=== PATIENT | female | born 1990 | race American Indian/Alaskan Native ===

== ENCOUNTER 2017-06-03 11:25 | Emergency (ER) | payer MEDICAID ==
[2017-06-03 11:40] VITALS: BMI 30.2
[2017-06-03 11:50] VITALS: RESP 18
[2017-06-03 13:22] LABS: HEMATOCRIT 34.4 % (34.0-47.0); MEAN CELL VOLUME 81.7 fL (81.0-99.0); MEAN CORPUSCULAR HEMOGLOBIN 27.5 pg (27.0-31.0); MEAN CORPUSCULAR HGB CONC 33.6 g/dL (33.0-37.0); MEAN PLATELET VOLUME 10.2 fL (7.2-11.7); RED CELL DISTRIBUTION WIDTH 15.2 % (11.5-14.5); WHITE BLOOD COUNT 6.7 K/uL (4.8-10.8)
--- NOTE | 2017-06-03 13:28 | C.PDOC ---
History Of Present Illness 26 y/o female A2 and currently 10 weeks presents to ED with complaints of low abdominal "cramping" pain for 2 days with associated brown vaginal discharge. Patient was seen at ED previously and diagnosed with UTI, given antibiotics which she states she finished. Patient denies taking pain medication and denies dysuria, back pain, fever, chills, vomiting or any other complaints at this time. Time Seen by Provider: 06/03/17 12:43 Chief Complaint (Nursing): Female Genitourinary History Per: Patient History/Exam Limitations: no limitations Onset/Duration Of Symptoms: Days Current Symptoms Are (Timing): Still Present Past Medical History Reviewed: Historical Data, Nursing Documentation, Vital Signs Vital Signs: Last Vital Signs Temp 98.4 F 06/03/17 14:24 Pulse 65 06/03/17 14:24 Resp 18 06/03/17 14:24 BP 116/67 06/03/17 14:24 Pulse Ox 96 06/03/17 15:15 - Medical History PMH: No Chronic Diseases Surgical History: No Surg Hx Family History: States: No Known Family Hx - Social History Hx Alcohol Use: No Hx Substance Use: No - Immunization History Hx Tetanus Toxoid Vaccination: No Hx Influenza Vaccination: No Hx Pneumococcal Vaccination: No Review Of Systems Constitutional: Negative for: Fever, Chills Gastrointestinal: Positive for: Abdominal Pain. Negative for: Vomiting Genitourinary: Positive for: Vaginal Discharge. Negative for: Dysuria, Hematuria Musculoskeletal: Negative for: Back Pain Physical Exam - Physical Exam Appears: Non-toxic, No Acute Distress Skin: Warm, Dry, No Rash Head: Normacephalic Eye(s): bilateral: Normal Inspection Oral Mucosa: Moist Neck: Normal ROM, Supple Chest: Symmetrical Cardiovascular: Rhythm Regular Respiratory: Normal Breath Sounds, No Rales, No Rhonchi, No Wheezing Gastrointestinal/Abdominal: Soft, Tenderness (Right suprapubic ), No Guarding, No Rebound Back: No CVA Tenderness Extremity: Normal ROM, Capillary Refill (<2 seconds) Neurological/Psych: Oriented x3 ED Course And Treatment - Laboratory Results Result Diagrams: 06/03/17 13:08 06/03/17 13:08 O2 Sat by Pulse Oximetry: 96 (RA) Pulse Ox Interpretation: Normal - CT Scan/US 1st Trimester Other Rad Studies (CT/US): Interpreted By Me, Read By Radiologist, Radiology Report Reviewed CT/US Interpretation: PROCEDURE: OB Pelvic Ultrasound. HISTORY: preg, pelvic pain and bleeding. COMPARISON: 05/17/2017. FINDINGS: UTERUS: Single Live intrauterine gestation. CRL equivalent to 9 weeks 3 days gestatioin. Gestational sac diameter equivalent to 10 weeks 4 days gestation. age ( Ultrasound estimated): 10 weeks 0 days. Date of delivery (Ultrasound estimated ) : 12/30/2017. Heart rate: 158 bpm. Sharlene-gestational hemorrhage: None. Uterus measures 13.2 x 7.3 x 10.2 cm. No mass. CERVIX: Long and closed. No cervical abnormality seen. RIGHT OVARY: Measures 3.9 x 2.4 x 3.2 cm. No mass. Normal flow. LEFT OVARY: Measures 4.2 x 2.7 x 3.6 cm. No mass. Normal flow. Simple cyst, 3.0 x 1.7 x 3.3 cm. Follow-up ultrasound is advised during 2nd trimester of to reassess this left ovarian cyst. FREE FLUID: None. OTHER FINDINGS: None. IMPRESSION: Single live intrauterine gestation of approximately 10 weeks 0 days gestational age. No subchorionic hemorrhage. heart rate 158 beats per minute. Cervix long and closed. Incidental 3.3 cm left ovarian cyst for which followup ultrasound is advised during the 2nd trimester of . Medical Decision Making Medical Decision Making: Impression: patient with cramping pain and spotting Plan: Labs, US Prior records reviewed: Patient seen at ED on 05/17/17 for pelvic pain and vaginal bleeding. Ultrasound showed +IUP for 6 weeks and FHR 117bpm Progress: Labs reviewed and WNL. US shows IUP 10 weeks with FHR 158 bpm. No UTI. Patient stable for discharge. Disposition Counseled Patient/Family Regarding: Studies Performed, Diagnosis, Need For Followup - Disposition [facility]] [facility] [Outside] Disposition: HOME/ ROUTINE Disposition Time: 15:14 Condition: STABLE Additional Instructions: Please follow up with [employer] visiting teacher for further evaluation, refer to list for local providers You may call [employer] printer service for any assistance [phone]. Take Tylenol for any pain Instructions: Threatened Miscarriage (ED) Forms: [employer] (Setswana) - POA Present On Arrival: None - Clinical Impression Clinical Impression: Abdominal pain during - PA / SCIENTIFIC SPECIALIST / Resident Statement MD/DO has reviewed & agrees with the documentation as recorded. - Scribe Statement The provider has reviewed the documentation as recorded by the Jennyibajay Arriola All medical record entries made by the Tabatha were at my direction and personally dictated by me. I have reviewed the chart and agree that the record accurately reflects my personal performance of the history, physical exam, medical decision making, and the department course for this patient. I have also personally directed, reviewed, and agree with the discharge instructions and disposition.
[2017-06-03 13:34] LABS: RBC URINE 1 /hpf (0-3); URINE BILIRUBIN NEGATIVE (NEGATIVE); URINE BLOOD NEGATIVE (NEGATIVE); URINE COLOR Yellow (YELLOW); URINE GLUCOSE (UA) NORMAL (Normal); URINE KETONE NEGATIVE (NEGATIVE); URINE LEUKOCYTE ESTERASE NEG Leu/uL (Negative); URINE PROTEIN NEGATIVE (NEGATIVE); URINE UROBILINOGEN NORMAL mg/dL (0.2-1.0); WBC URINE 1 /hpf (0-5)
[2017-06-03 13:42] LABS: BLOOD UREA NITROGEN 8 mg/dL (7-17); CALCIUM 8.8 mg/dl (8.6-10.4); CARBON DIOXIDE 21 mmol/L (22-30); CHLORIDE 102 mmol/L (98-107); GFR AFRICAN-AMERICAN > 60; GLUCOSE,RANDOM 83 mg/dL (65-105); POTASSIUM 3.4 mmol/L (3.6-5.2); SODIUM 134 mmol/L (132-148)
[2017-06-03 14:25] VITALS: BP 116/67; PULSE 65; TEMP 98.4
--- NOTE | 2017-06-03 14:56 | US ---
PROCEDURE: OB Pelvic Ultrasound HISTORY: preg, pelvic pain and bleeding COMPARISON: 05/17/2017 FINDINGS: UTERUS: Single Live intrauterine gestation. CRL equivalent to 9 weeks 3 days gestatioin Gestational sac diameter equivalent to 10 weeks 4 days gestation age (Ultrasound estimated): 10 weeks 0 days Date of delivery (Ultrasound estimated) : 12/30/2017 Heart rate: 158 bpm. Sharlene-gestational hemorrhage: None. Uterus measures 13.2 x 7.3 x 10.2 cm. No mass CERVIX: Long and closed. No cervical abnormality seen. RIGHT OVARY: Measures 3.9 x 2.4 x 3.2 cm. No mass. Normal flow. LEFT OVARY: Measures 4.2 x 2.7 x 3.6 cm. No mass. Normal flow. Simple cyst, 3.0 x 1.7 x 3.3 cm. Follow-up ultrasound is advised during 2nd trimester of to reassess this left ovarian cyst. FREE FLUID: None. OTHER FINDINGS: None. IMPRESSION: Single live intrauterine gestation of approximately 10 weeks 0 days gestational age. No subchorionic hemorrhage. heart rate 158 beats per minute. Cervix long and closed. Incidental 3.3 cm left ovarian cyst for which followup ultrasound is advised during the 2nd trimester of .
[2017-06-03 15:01] VITALS: O2SAT 96
== END 2017-06-03 15:40 | disposition home or self-care (01) ==
LOC: C.ER 11:25
DX: O26.891 Other specified pregnancy related conditions, first trimester (principal); R10.30 Lower abdominal pain, unspecified; Z3A.10 10 weeks gestation of pregnancy

== ENCOUNTER 2017-10-06 13:52 | Emergency (ER) | payer MEDICAID ==
[2017-10-06 14:51] LABS: SQUAMOUS EPITHIAL < 1 /hpf (0-5); URINE BACTERIA RARE (<OCC); URINE BILIRUBIN NEGATIVE (NEGATIVE); URINE BLOOD NEGATIVE (NEGATIVE); URINE CLARITY Hazy (Clear); URINE COLOR Yellow (YELLOW); URINE GLUCOSE (UA) NORMAL (Normal); URINE LEUKOCYTE ESTERASE TRACE Leu/uL (Negative); URINE PROTEIN NEGATIVE (NEGATIVE); URINE UROBILINOGEN NORMAL mg/dL (0.2-1.0)
--- NOTE | 2017-10-06 14:51 | OBHP ---
Datetime: 10/06/2017 14:46 IP Adm Impression: , intrauterine Admit Comment, IP Provider: at 28.4weeks came with c/o ABDOMIBAL DISCOMFORT started from saturday , upper abdomen, no ctxs, vb, lof+fm obhx 1 x pmh de med pnv all nkda psh den soch den ve closed a/p maternal discomfort r/o epigasytric pain plan dc home ptl given po hyr tums f/u pmd in 1-2days Pelvic Type - PN: Adequate Extremities - PN: Normal Abdomen - PN: Normal Back - PN: Normal Breast - PN: Normal Lungs - PN: Normal Heart - PN: Normal Thyroid - PN: Normal Neurologic - PN: Normal HEENT - PN: Normal General - PN: Normal FHR - Baseline A Provider: 130 Contraction Comments Provider: none EGA AdmitDate IP: 28.4 Vital Signs Provider: Reviewed; Within Normal Limits IP Chief Complaint: Maternal discomfort NICHD Variability Prov Fetus A: Moderate 6-25bpm NICHD Accel Fetus A IP Provider: 10X10 FHR Category Provider Fetus A: Category I Dilatation, Provider: 0 Effacement, Provider: 0 Station, Provider: -3 Genitourinary Exam: Normal DTRs - PN: Normal
--- NOTE | 2017-10-06 14:53 | OBDCSUM ---
Datetime: 10/06/2017 14:50 Discharge Comment, Provider: dc home ptl given po hyr indras f/u pmd in 1-2days Discharge Diagnosis Prov Other: 28+weeks nst
[2017-10-06 23:14] VITALS: BP 139/69; PULSE 80; RESP 18; TEMP 98; O2SAT 99
== END 2017-10-06 15:00 | disposition home or self-care (01) ==
LOC: C.EROB 13:52
DX: O26.893 Other specified pregnancy related conditions, third trimester (principal); Z3A.28 28 weeks gestation of pregnancy

== ENCOUNTER 2017-12-08 20:52 | Emergency (ER) | payer MEDICAID ==
[2017-12-08 20:19] VITALS: BMI 30.2
[2017-12-08 21:53] LABS: HEMOGLOBIN 12.5 g/dL (11.0-16.0); MEAN CELL VOLUME 83.1 fL (81.0-99.0); MEAN CORPUSCULAR HGB CONC 34.9 g/dL (33.0-37.0); MEAN PLATELET VOLUME 10.3 fL (7.2-11.7); RBC 4.3 Mil/uL (3.80-5.20); RED CELL DISTRIBUTION WIDTH 13.8 % (11.5-14.5); WHITE BLOOD COUNT 6.5 K/uL (4.8-10.8)
[2017-12-08 21:56] LABS: SQUAMOUS EPITHIAL < 1 /hpf (0-5); URINE BACTERIA RARE (<OCC); URINE BILIRUBIN NEGATIVE (NEGATIVE); URINE BLOOD NEGATIVE (NEGATIVE); URINE CLARITY Clear (Clear); URINE COLOR Yellow (YELLOW); URINE GLUCOSE (UA) NORMAL (Normal); URINE LEUKOCYTE ESTERASE NEG Leu/uL (Negative); URINE PROTEIN NEGATIVE (NEGATIVE); URINE UROBILINOGEN NORMAL mg/dL (0.2-1.0)
[2017-12-08 22:04] LABS: ALB/GLOB RATIO 1.1 (1.0-2.1); ALBUMIN 3.5 g/dL (3.5-5.0); ALT/SGPT 44 U/L (9-52); AST/SGOT 33 U/L (14-36); BLOOD UREA NITROGEN 5 mg/dL (7-17); CALCIUM 9.6 mg/dl (8.6-10.4); GFR AFRICAN-AMERICAN > 60; GFR NON-AFRICAN AMERICAN > 60
--- NOTE | 2017-12-08 22:15 | OBHP ---
Datetime: 12/08/2017 21:45 IP Adm Impression: Term, intrauterine IP Admit Plan: Observation/Evaluation Admit Comment, IP Provider: PT is here today with complaints of feeling tired and dizzy since 10am. Pt denies dizziness, or lightheadedness. Denies vaginal bleeding or leaking of fluid. POBHx: #8lbs. short cervix. PGYNHx: normal pap, no hx of STD Social Hx: negative x 3. Meds: none All: NKDA SVE: closed/long/hi A/P 27 [id number]@ 37 6/7 presents today with complaints of feeling tired. 1) Vitals stable 2) Labs: WNL 3) Discharge home. 4) Follow up w care. Pelvic Type - PN: Adequate Extremities - PN: Normal Abdomen - PN: Normal Back - PN: Normal Breast - PN: Normal Lungs - PN: Normal Heart - PN: Normal Thyroid - PN: Normal Neurologic - PN: Normal HEENT - PN: Normal General - PN: Normal FHR - Baseline A Provider: 150 Comments, ACOG Physical Exam: SVE: closed/long/hi Gestation - Est Wks by US: 37 6/7 EGA AdmitDate IP: 37.4 IP Chief Complaint: Maternal discomfort NICHD Variability Prov Fetus A: Moderate 6-25bpm NICHD Accel Fetus A IP Provider: 15X15 NICHD Decel Fetus A IP Provider: None Genitourinary Exam: Normal DTRs - PN: Normal
[2017-12-09 03:22] VITALS: BP 120/69; PULSE 71; RESP 20; TEMP 97; O2SAT 98
== END 2017-12-08 22:40 | disposition home or self-care (01) ==
LOC: C.EROB 20:52
DX: O26.813 Pregnancy related exhaustion and fatigue, third trimester (principal); Z3A.37 37 weeks gestation of pregnancy

== ENCOUNTER 2017-12-20 16:30 | Emergency (ER) | payer MEDICAID ==
[2017-12-20 17:35] VITALS: BMI 41.0
[2017-12-20 17:54] LABS: BASO % 0.5 % (0.0-2.0); EOS % 0.7 % (0.0-4.0); HEMOGLOBIN 12.2 g/dL (11.0-16.0); LYMPH # 1.6 K/uL (1.0-4.3); LYMPH % 25.4 % (20.0-40.0); MEAN CELL VOLUME 83.4 fL (81.0-99.0); MEAN CORPUSCULAR HEMOGLOBIN 29.4 pg (27.0-31.0); MEAN CORPUSCULAR HGB CONC 35.2 g/dL (33.0-37.0); MONO # 0.6 K/uL (0.0-0.8); NEUT # 4.1 K/uL (1.8-7.0); NEUT % 63.4 % (50.0-75.0); NRBC % 0.1 % (0.0-2.0); RBC 4.15 Mil/uL (3.80-5.20); RED CELL DISTRIBUTION WIDTH 13.8 % (11.5-14.5); WHITE BLOOD COUNT 6.5 K/uL (4.8-10.8)
[2017-12-20 17:55] LABS: SQUAMOUS EPITHIAL 4 /hpf (0-5); URINE BACTERIA OCC (<OCC); URINE BILIRUBIN NEGATIVE (NEGATIVE); URINE BLOOD NEGATIVE (NEGATIVE); URINE CLARITY Clear (Clear); URINE COLOR Yellow (YELLOW); URINE GLUCOSE (UA) NORMAL (Normal); URINE PROTEIN NEGATIVE (NEGATIVE); URINE UROBILINOGEN NORMAL mg/dL (0.2-1.0)
[2017-12-20 17:56] LABS: URINE LEUKOCYTE ESTERASE TRACE Leu/uL (Negative)
--- NOTE | 2017-12-20 18:48 | OBPN ---
Datetime: 12/20/2017 18:34 Contraction Comments Provider: CTX 6-8 min FHR - Baseline A Provider: 130 Gestation - Est Wks by US: 39.0 Presentation-Admit: Vertex IP Progress Note Comment: 27 y/o at 39.2 wks presented to L_D with c/o lower abdominal discomf ort and pressure. Pt also c/o pressure with urination. No c/o dysuria or frequency of urination. No c /o CTX ,VB or LOF. Pt received PNC in [place] and now moved to this area. She has a h/o Thrombocytopenia. No other ocmplications with the current . ABD: Soft, NT VE: 2 /70/-3 TOCO: Irr ctx every 6-8 min. EFM: 130 CAT 1 Labs; Urine- No nitrates, No blood. CBC: Pltes- 103 A/P : 27 y/o at 39.2 wks r/o labor, UTI Pt not in labor - Labor precautions discussed Throbocytopenia- Pt advised to f/u with the [facility] Urine normal- Pt advised to f/u if she develops dysuria S/S of warning sighns discussed. Pt to f/u on Saturday with [facility]. Vital Signs Provider: Reviewed; Within Normal Limits NICHD Accel Fetus A IP Provider: 15X15 FHR Category Provider Fetus A: Category I NICHD Variability Prov Fetus A: Moderate 6-25bpm Dilatation, Provider: 2 Effacement, Provider: 70 Station, Provider: -3 NICHD Decel Fetus A IP Provider: None
[2017-12-20 23:13] VITALS: BP 130/70; PULSE 81; RESP 20; TEMP 98.3
== END 2017-12-20 17:55 | disposition home or self-care (01) ==
LOC: C.EROB 16:30
DX: O26.93 Pregnancy related conditions, unspecified, third trimester (principal); R10.9 Unspecified abdominal pain; Z3A.39 39 weeks gestation of pregnancy

== ENCOUNTER 2017-12-25 07:31 | Inpatient (IN) | payer MEDICAID ==
[2017-12-25 07:54] VITALS: BMI 40.2
--- NOTE | 2017-12-25 08:01 | OBADHP ---
Datetime: 12/25/2017 07:57 Admit Comment, IP Provider: at40 week her fir indution for irrg ctxs, no vb, lof=fm obhx 1 x nsbvd pmh de med pnv all nkda psh de soch de ve /-2 a/p at 40weks here for induction cytotec po cont warner and efm paiin ma anticipate Pelvic Type - PN: Adequate Extremities - PN: Normal Abdomen - PN: Normal Back - PN: Normal Breast - PN: Normal Lungs - PN: Normal Heart - PN: Normal Thyroid - PN: Normal Neurologic - PN: Normal HEENT - PN: Normal General - PN: Normal FHR - Baseline A Provider: 130 Contraction Comments Provider: irrg IP Hx Assessment: The History has been Reviewed and is Current Vital Signs Provider: Reviewed IP Chief Complaint: Uterine contractions NICHD Variability Prov Fetus A: Moderate 6-25bpm NICHD Accel Fetus A IP Provider: 15X15 FHR Category Provider Fetus A: Category I Dilatation, Provider: 3 Effacement, Provider: 70 Station, Provider: -2 Genitourinary Exam: Normal DTRs - PN: Normal EGA AdmitDate IP: 40.0 IP Adm Impression: Term, intrauterine IP Admit Plan: Admit to unit; Initiate labor induction protocol Datetime: 12/20/2017 18:34 Presentation-Admit: Vertex Gestation - Est Wks by US: 39.0 NICHD Decel Fetus A IP Provider: None Datetime: 12/08/2017 21:45 Comments, ACOG Physical Exam: SVE: closed/long/hi
[2017-12-25] MEDS: Lactated Ringer's 1,000 ML IV SCH ×2 (08:39→15:41)
[2017-12-25 09:09] LABS: BASO % 0.4 % (0.0-2.0); EOS % 0.5 % (0.0-4.0); HEMOGLOBIN 12.6 g/dL (11.0-16.0); LYMPH # 1.7 K/uL (1.0-4.3); LYMPH % 28.2 % (20.0-40.0); MEAN CELL VOLUME 82.9 fL (81.0-99.0); MEAN CORPUSCULAR HEMOGLOBIN 28.9 pg (27.0-31.0); MEAN CORPUSCULAR HGB CONC 34.9 g/dL (33.0-37.0); MONO # 0.4 K/uL (0.0-0.8); NEUT # 3.9 K/uL (1.8-7.0); NEUT % 63.9 % (50.0-75.0); NRBC % 0.1 % (0.0-2.0); RBC 4.38 Mil/uL (3.80-5.20); WHITE BLOOD COUNT 6.2 K/uL (4.8-10.8)
[2017-12-25 09:14] LABS: SQUAMOUS EPITHIAL 20 /hpf (0-5); URINE BACTERIA RARE (<OCC); URINE BILIRUBIN NEGATIVE (NEGATIVE); URINE CLARITY Hazy (Clear); URINE COLOR Amber (YELLOW); URINE GLUCOSE (UA) NORMAL (Normal); URINE HYALINE CAST 0-2 /lpf (0-2); URINE LEUKOCYTE ESTERASE 1+ Leu/uL (Negative); URINE PROTEIN 1+ mg/dL (NEGATIVE); URINE UROBILINOGEN NORMAL mg/dL (0.2-1.0)
[2017-12-25 09:19] LABS: URINE BLOOD 1+ (NEGATIVE)
[2017-12-25 09:20] LABS: ALB/GLOB RATIO 1.3 (1.0-2.1); ALBUMIN 3.8 g/dL (3.5-5.0); ALT/SGPT 47 U/L (9-52); AST/SGOT 38 U/L (14-36); BLOOD UREA NITROGEN 4 mg/dL (7-17); CALCIUM 9.2 mg/dl (8.6-10.4); GFR AFRICAN-AMERICAN > 60; GFR NON-AFRICAN AMERICAN > 60
[2017-12-25 10:07] LABS: PROTHROMBIN TIME 10.9 SECONDS (9.7-12.2)
--- NOTE | 2017-12-25 13:07 | OBPN ---
Datetime: 12/25/2017 13:05 IP Progress Impression: Normal progression of labor IP Procedures: Artificial ROM; Sterile Vag Exam Contraction Comments Provider: irrg FHR - Baseline A Provider: 130 IP Progress Note Comment: pt was sen t bd side ve /-2 arom clear start ptocin anticipte Vital Signs Provider: Reviewed; Within Normal Limits NICHD Accel Fetus A IP Provider: 15X15 FHR Category Provider Fetus A: Category I NICHD Variability Prov Fetus A: Moderate 6-25bpm Dilatation, Provider: 4 Effacement, Provider: 70 Station, Provider: -2
[2017-12-25] MEDS ORDERED: Oxytocin 30 UNIT 30 UNITS/500 ML BAG IV ONE ×2 (13:15→13:29)
[2017-12-25] MEDS ORDERED: Bupivacaine HCl/FentaNYL Cit 100 ML EPI ONE ×2 (14:46→20:56)
--- NOTE | 2017-12-25 19:07 | OBPN ---
Datetime: 12/25/2017 19:04 IP Progress Impression: Normal progression of labor IP Procedures: Sterile Vag Exam FHR - Baseline A Provider: 130 IP Progress Note Comment: pt was examined at bed side ve 9/100/0 cont pitocin wi;ll start pushing NICHD Accel Fetus A IP Provider: 15X15 FHR Category Provider Fetus A: Category I NICHD Variability Prov Fetus A: Moderate 6-25bpm Dilatation, Provider: 9 Effacement, Provider: 100 Station, Provider: 0
[2017-12-25] MEDS ORDERED: Bupivacaine HCl 0.25% PF (30 ml) Inj ONE (20:55)
[2017-12-25] MEDS ORDERED: Tdap Vaccine 0.5 ml Vial (10-64 yrs) IM ONE (22:16)
[2017-12-25] MEDS ORDERED: Benzocaine/Menthol 20%-0.5% Topical Spray (60 ml) TOP PRN (22:16)
[2017-12-25] MEDS ORDERED: Oxytocin 30 UNIT 30 UNITS/500 ML BAG IV SCH (22:30)
--- NOTE | 2017-12-26 06:41 | OBPPN ---
Datetime: 12/26/2017 06:39 PP Pain Prov: Within normal limits PP Nausea Prov: Denies PP Flatus Prov: Yes PP Abdomen/Uterus Prov: Normal PP Lochia Prov: Normal PP Extremities Prov: Normal PP Comments Phys Exam Prov: fudus below umb ext no edema, no cvalf ten PP Impression Prov: Normal progression PP Plan Prov: Continue present management PP Progress Note Prov: pt was sen at bed side, pain under control,no n/v, tolerati g deit, voiding, min lochia, flatus+ ppd#1 cont pp cre cont pain marjorie encourage ambulation Vital Signs Provider PP: Reviewed; Within Normal Limits
[2017-12-26 08:09] LABS: BASO % 0.3 % (0.0-2.0); EOS % 0.3 % (0.0-4.0); HEMOGLOBIN 11.9 g/dL (11.0-16.0); LYMPH # 2.4 K/uL (1.0-4.3); LYMPH % 18.4 % (20.0-40.0); MEAN CELL VOLUME 83.7 fL (81.0-99.0); MEAN CORPUSCULAR HEMOGLOBIN 29.2 pg (27.0-31.0); MEAN CORPUSCULAR HGB CONC 34.9 g/dL (33.0-37.0); MEAN PLATELET VOLUME 11.1 fL (7.2-11.7); MONO # 1.2 K/uL (0.0-0.8); MONO % 9.2 % (0.0-10.0); NEUT # 9.3 K/uL (1.8-7.0); NEUT % 71.8 % (50.0-75.0); RBC 4.06 Mil/uL (3.80-5.20); RED CELL DISTRIBUTION WIDTH 13.8 % (11.5-14.5); WHITE BLOOD COUNT 12.9 K/uL (4.8-10.8)
[2017-12-26] MEDS: Oxycodone/Acetaminophen 5/325 mg Tab PO PRN (20:35)
[2017-12-27 00:07] VITALS: PULSE 65; TEMP 97.6
[2017-12-27] MEDS: Oxycodone/Acetaminophen 5/325 mg Tab PO PRN (03:36)
[2017-12-27 08:08] VITALS: BP 99/65; RESP 18
--- NOTE | 2017-12-27 09:40 | OBPPN ---
Datetime: 12/27/2017 09:37 PP Pain Prov: Within normal limits PP Nausea Prov: Denies PP Flatus Prov: Yes PP Abdomen/Uterus Prov: Normal PP Lochia Prov: Normal PP Extremities Prov: Normal PP Impression Prov: Normal progression PP Plan Prov: Discharge PP Progress Note Prov: pt was seen at bed side,pain uner control,no n/v, tolerating deit, voiding ,m in ochia, flatus+ ppd#2 dc home no sex motrin pr f/u in 4we Vital Signs Provider PP: Reviewed; Within Normal Limits
--- NOTE | 2017-12-27 09:40 | OBDCSUM ---
Datetime: 12/27/2017 09:38 Discharged to, Provider: Home Follow up at, Provider: 3we Disch Instr Diet: Regular Discharge Diagnosis, Provider: Term Delivered Follow up in weeks, Provider: office Disch Activity Restrictions: No lifting; No driving; Minimize walking; Minimize stair-climbing; No s exual activity; Nothing in vagina - [place], tampons, douche
--- NOTE | 2017-12-27 09:46 | NBCIR ---
Datetime: 10/06/2017 14:11 Preformed by:: dr haas Circumcision Request: Yes Consent Signed: Verbal Consent Obtained; Written Consent Signed and on Chart Position: [place] Board Circumcision Time Out: Correct Patient Identity; Correct Side and Site are Marked; Accurate Procedur e Consent Form; Agreement on Procedure to be Done; Correct Patient Position; Relevant Images and Resu lts are Properly Labeled and Displayed; Addressed Need to Administer Antibiotics or Fluids for Irriga tion; Safety Precautions Based on Patient History or Medication Use Equipment Used: Gom[employer] Clamp Gunter Size: 1.3 Systemic Medications: None Complications: None Status: Excellent Cosmetic Outcome; Tolerated Procedure Well; Hemostatic Parents Present: None Procedure Note: circ done by gomco 1.3 no com Datetime: 10/06/2017 13:52 PT-NAME: BRANNON HANLEY
--- NOTE | 2017-12-27 19:26 | OBHP ---
Datetime: 12/25/2017 13:05 Vital Signs Provider: Reviewed; Within Normal Limits Datetime: 12/25/2017 07:57 EGA AdmitDate IP: 38.4 Datetime: 12/20/2017 19:21 IP Adm Impression: Term, intrauterine IP Admit Plan: Observation/Evaluation Admit Comment, IP Provider: 27 y/o at 39.2 wks presented to L_D with c/o lower abdominal disco mfort and pressure. Pt also c/o pressure with urination. No c/o dysuria or frequency of urination. No c/o CTX ,VB or LOF. Pt received PNC in [place] and now moved to this area. She has a h/o Thrombocytopenia . No other ocmplications with the current . ABD: Soft, NT FHR - Baseline A Provider: 130 Contraction Comments Provider: 6-8 min Comments, ACOG Physical Exam: Abd: soft, NT VE: 2-3/70/-2 IP Chief Complaint: Uterine contractions NICHD Variability Prov Fetus A: Moderate 6-25bpm NICHD Accel Fetus A IP Provider: Prolonged FHR Category Provider Fetus A: Category I NICHD Decel Fetus A IP Provider: None Dilatation, Provider: 2 Effacement, Provider: 70 Station, Provider: -2
[2017-12-27 20:39] VITALS: O2SAT 100
== END 2017-12-27 14:00 | disposition home or self-care (01) | DRG 373 ==
LOC: C.EROB 07:31 → C.4D 07:59 → C.4M 12-26 00:20
PROVIDERS: ADMIT Obstetrics & Gynecology; ATTEND Obstetrics & Gynecology
PROC: 10E0XZZ Delivery of Products of Conception, External Approach (ICD-10-PCS; principal; 2017-12-25)
PROC: 10907ZC Drainage of Amniotic Fluid, Therapeutic from Products of Conception, Via Natural or Artificial Opening (ICD-10-PCS; 2017-12-25)
DX: O99.12 Other diseases of the blood and blood-forming organs and certain disorders involving the immune mechanism complicating childbirth (principal); D69.6 Thrombocytopenia, unspecified; Z3A.39 39 weeks gestation of pregnancy; Z37.0 Single live birth